=== PATIENT | male | born 2000 | race Caucasian/White ===

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

== ENCOUNTER → 2019-08-14 | Outpatient (REF) | payer OTHER, BC ==
[2019-08-14 10:43] LABS: INFLUENZA A AMPLIFICATION NEGATIVE (NEGATIVE); INFLUENZA B AMPLIFICATION POSITIVE (NEGATIVE)
== END ==
LOC: M LAB REF 10:04
PROVIDERS: ATTEND Physician Assistant Medical
DX: R50.9 Fever, unspecified (principal)

== ENCOUNTER → 2019-10-26 | Outpatient (REF) | payer OTHER, BC | LOC: M LAB REF 21:07 | PROVIDERS: ATTEND Physician Assistant Medical | DX: Z11.59 Encounter for screening for other viral diseases (principal); Z20.828 Contact with and (suspected) exposure to other viral communicable diseases ==

== ENCOUNTER → 2020-05-24 | Outpatient (REF) | payer OTHER, BC | LOC: M LAB REF 17:00 | PROVIDERS: ATTEND Physician Assistant | DX: Z11.59 Encounter for screening for other viral diseases (principal) ==